=== PATIENT | male | born 1950 | race Caucasian/White ===

== ENCOUNTER 2024-03-30 10:41 | Emergency (ER) | payer OTHER, MEDICARE, SELFPAY ==
[2024-03-30 10:51] VITALS: BP 172/101
[2024-03-30 11:11] VITALS: BP 162/104
--- NOTE | 2024-03-30 11:27 | ED.GENMED ---
History of Present Illness
General
Chief Complaint: Head Injury
Source: patient
Time Seen by Provider: 03/30/24 11:11
History of Present Illness
History of Present Illness:
74-year-old male with past medical history of previous TIA presenting to the emergency department from urgent care for evaluation after he was at work (works at a [employer]) was pulling steaks from the [employer] when 1 came loose and struck him on the
right side of his head/ear. Patient went to urgent care was recommended to come to the ER for a CT scan of the head. Patient notes abrasion/laceration to the right ear with mild bleeding. Tetanus vaccine is up-to-date. No other injuries
sustained. Patient does not take any antiplatelet or anticoagulant medications. Presently only noting some pain to the right ear but otherwise asymptomatic.
Past History
Past History
ED Past Medical History: CVA
ED Past Surgical History: Urological
Social History
Tobacco: Non-smoker
Alcohol: Occasional
Drug: None
Personal:
Living: with family
Review of Systems
Review of Systems
All Other Systems: ROS reviewed and negative except as documented in HPI and ROS
Phy Exam
Physical Exam
Physical Exam:
GENERAL: Alert , in no apparent distress
EYE: conjunctiva clear
Head: 2 superficial abrasions to the right ear, 1 at the proximal portion of the inner helix and 1 to the posterior auricle with slight oozing but no active bleeding
NECK: Supple,
ENT: mmm. TMs clear bilateral, no perforation
LUNGS: no acute respiratory distress
NEUROLOGICAL: Alert and oriented
SKIN: Warm and dry, skin intact.
MUSCULOSKELETAL: well perfused.
PSYCH: Normal and appropriate interaction.
Scores
Heart Failure Risk
Heart Failure Risk Score: Not Applicable
Heart Score for Chest Pain Patients
STEMI patient?: Not applicable
Withdrawal Assessment of Alcohol
Withdrawal Assessment Completed?: Not applicable
Course
Orders/Labs/Results
Orders:
Orders
03/30/24 10:54
CT Head W/o Iv Contrast Urgent
Comment:
Reason For Exam: head injury
Vital Signs
Initial and Last Documented VS:
Initial Vital Signs
Temp Resp BP Pulse Ox
98.4 F 16 172/101 97
03/30/24 10:51 03/30/24 10:51 03/30/24 10:51 03/30/24 10:51
Last Documented Vital Signs
Temp Resp BP Pulse Ox
98.4 F 16 162/104 97
03/30/24 10:51 03/30/24 10:51 03/30/24 11:11 03/30/24 11:30
MDM/Problems Addressed
Differential Diagnosis Includes:
superficial laceration, minor head injury, concussion, minimal concern for ICH 74-year-old male presenting to the emergency department for evaluation at the request of urgent care following head injury sustained while removing a steak from the
[place] causing a fine or other material to strike him on the right side of his head and sustaining 2 separate abrasions/lacerations to the right ear. Wound was irrigated with normal saline. Will place Dermabond on the posterior
abrasion/laceration. CT of the head ordered from triage however I do have minimal suspicion for intracranial pathology. Patient's tetanus is also up-to-date.
*Pulse Oximetry
Patient hypoxic: no
*Critical Care Note
Total Time (30-74mins, 75-104mins- exclusive of procedures): Not Applicable
Patient Management
Escalation/DeEscalation of care consider admission/obs:
Patient upset with wait time and is requesting to leave. I attempted to contact CAT scan to expedite patient's CAT scan but due to acuity unable to get patient to CT scan sooner. At this time I do feel it is reasonable to forego CT scan given the
mechanism and my lack of suspicion for intracranial bleeding. Dermabond was placed to the affected area on the right ear which measured approximately 8 mm in total length. Patient advised on wound care but is otherwise stable for discharge home
ED Attending Note
-
Portions of this chart may have been created with voice recognition software.� Occasional wrong word or��sound alike� substitutions may have occurred due to the inherent limitations of voice recognition software.
Discharge Plan
Departure
Patient Disposition: Home (Routine Discharge)
Date of Disposition: 03/30/24
Time of Disposition: 13:22
Patient with high blood pressure during this ER visit?: No
Discharge Problem:
Laceration of right ear
Instructions: Laceration Repair With Glue (DC)
Referrals:
NONE,* [Family Provider] -
Interventions
Interventions:
*Risk Screen - Suicide Last Done: 03/30/24 11:37
*General Assessment Last Done: 03/30/24 13:42
*Neglect/Abuse Screening Last Done: 03/30/24 11:37
ED- Fall Risk Assessment Last Done: 03/30/24 11:37
*ED COVID-19 Vaccine History Last Done: 03/30/24 11:37
*Nursing Disposition Last Done: 03/30/24 13:42
ED- Neurological Assessment Last Done: 03/30/24 11:37
ED-Skin Assessment Last Done: 03/30/24 11:37
Discharge Date and Time
Discharge Date/Time: 03/30/24 13:43
Print Language: ALBANIAN
== END 2024-03-30 13:43 | disposition home or self-care (01) ==
LOC: EMR 10:41
PROVIDERS: EMERGENCY PHYSICIAN Student in an Organized Health Care Education/Training Program
DX: S01.311A Laceration without foreign body of right ear, initial encounter (principal); W22.8XXA Striking against or struck by other objects, initial encounter; Y99.0 Civilian activity done for income or pay; Z86.73 Personal history of transient ischemic attack (TIA), and cerebral infarction without residual deficits
CPT/HCPCS: 99282; 12011